=== PATIENT | female | born 1955 | race Two or more races ===

== ENCOUNTER → 2018-07-10 | Outpatient (CLI) | payer OTHER | END | disposition home or self-care (01) | LOC: RAD 501 10:16 | DX: M12.9 Arthropathy, unspecified (principal); M19.90 Unspecified osteoarthritis, unspecified site ==

== ENCOUNTER 2018-07-17 10:06 | Outpatient (CLI) | payer OTHER | END 2018-07-17 10:08 | disposition home or self-care (01) | LOC: SONOGRAMA 10:06 | DX: M12.89 Other specific arthropathies, not elsewhere classified, multiple sites (principal); M19.90 Unspecified osteoarthritis, unspecified site ==